=== PATIENT | female | born 1935 | race Caucasian/White ===

== ENCOUNTER 2016-11-03 11:08 | Day surgery (SDC) | payer MEDICARE, BC ==
--- NOTE | ~2016-11-03 | EGD ---
EGD REPORT [facility] [address] [address] NAME: ESTELA RIVERA : [birth year] STATUS : REG [facility]#: [id number] AGE: 81 ADM/REG DATE : 11/03/16 MR#: [id number] REPORT SERV DATE: 11/03/16 DICTATED BY: DATE: REPORT STATUS : Draft TRANSCRIBED BY: [employer] DATE: 11/03/16 [facility] Patient Name: Estela Rivera Date of : 1935 Attending MD: POLINA ARCEO MD Procedure Date No Time: 11/03/2016 Procedure: Colonoscopy Indications: Heme positive stool, Iron deficiency anemia Referring MD: Shaheen GUEVARA Medicines: See the Anesthesia note for documentation of the administered medications Complications: No immediate complications. Procedure: Pre-Anesthesia Assessment: - ASA Grade Assessment: III - A patient with severe systemic disease. After I obtained informed consent, the scope was passed under direct vision. Throughout the procedure, the patient's blood pressure, pulse, and oxygen saturations were monitored continuously. The PCF [id number] was introduced through the anus and advanced to the cecum, identified by appendiceal orifice and ileocecal valve. The colonoscopy was performed without difficulty. The patient tolerated the procedure well. The quality of the bowel preparation was fair. Findings: The perianal and digital rectal examinations were normal. Internal hemorrhoids were found during retroflexion and were small. A sessile polyp was found in the ascending colon. The polyp was small in size. The polyp was removed with a cold biopsy forceps. Resection and retrieval were complete. A sessile polyp was found in the sigmoid colon. The polyp was small in size. The polyp was removed with a cold biopsy forceps. Resection and retrieval were complete. Impression: - Internal hemorrhoids. - One small polyp in the ascending colon. Resected and retrieved. - One small polyp in the sigmoid colon. Resected and retrieved. Recommendation: - Patient has a contact number available for emergencies. The signs and symptoms of potential delayed complications were discussed with the patient. Return to normal activities tomorrow. Written discharge EGD REPORT [address] [place]. [address] NAME: ESTELA RIVERA : [birth year] STATUS : REG [facility] PAT#: [id number] AGE: 81 ADM/REG DATE : 11/03/16 MR#: [id number] REPORT SERV DATE: 11/03/16 DICTATED BY: DATE: REPORT STATUS : Draft TRANSCRIBED BY: [employer] DATE: 11/03/16 instructions were provided to the patient. - Regular diet. - Continue present medications. - Repeat colonoscopy is not recommended for surveillance. - FOR YOUR BIOPSY RESULTS: Please go to [email or web address] and register to receive your results via the portal. Your biopsy results will be posted there in about 7 to 10 days. IF you do not see result in 10 days, call office. - Return to my office in 6 weeks. Procedure Code(s): --- Professional --- 03635, Colonoscopy, flexible, proximal to splenic flexure; with biopsy, single or multiple Diagnosis Code(s): --- Professional --- K64.8, Other hemorrhoids D12.5, Benign neoplasm of sigmoid colon D12.2, Benign neoplasm of ascending colon R19.5, Other fecal abnormalities D50.9, Iron deficiency anemia, unspecified CPT copyright 2013 [employer]. All rights reserved. The codes documented in this report are preliminary and upon solar water heater installer review may be revised to meet current compliance requirements. Polina Arceo MD POLINA ARCEO MD 11/03/2016 1:20 PM This report has been signed electronically. Number of Addenda: 0 Note Initiated On: 11/03/2016 12:45 PM Scope Withdrawal Time 0 hours 6 minutes 6 seconds [id number] [id number]
--- NOTE | ~2016-11-03 | EGD ---
EGD REPORT [facility] [address] [address] NAME: ESTELA RIVERA : 37 STATUS : REG [facility]#: [id number] AGE: 81 ADM/REG DATE : 11/03/16 MR#: [id number] REPORT SERV DATE: 11/03/16 DICTATED BY: POLINA ARCEO DATE: 11/03/16 REPORT STATUS : Draft TRANSCRIBED BY: [facility] DATE: 11/03/16 [facility] Patient Name: Estela Rivera Date of : 1935 Attending MD: POLINA ARCEO MD Procedure Date No Time: 11/03/2016 Procedure: Upper GI endoscopy Indications: Iron deficiency anemia, Heme positive stool Referring MD: KRISTOPHER Castle Medicines: See the Anesthesia note for documentation of the administered medications Complications: No immediate complications. Procedure: Pre-Anesthesia Assessment: - ASA Grade Assessment: III - A patient with severe systemic disease. After obtaining informed consent, the endoscope was passed under direct vision. Throughout the procedure, the patient's blood pressure, pulse, and oxygen saturations were monitored continuously. The GIF H190 [id number] was introduced through the mouth, and advanced to the second part of duodenum. The upper GI endoscopy was accomplished without difficulty. The patient tolerated the procedure well. Findings: The 2nd part of the duodenum was normal. Biopsies were taken with a cold forceps for histology. Two non-bleeding superficial duodenal ulcers with no stigmata of bleeding were found in the duodenal bulb. Mild inflammation was found in the gastric antrum. Biopsies were taken with a cold forceps for histology. The cardia and gastric fundus were normal on retroflexion. A 6 cm hiatus hernia was present. Impression: - Normal 2nd part of the duodenum. Biopsied. - Multiple duodenal ulcers with clean base. - Gastritis. Biopsied. - Hiatus hernia. Recommendation: - Patient has a contact number available for emergencies. The signs and symptoms of potential delayed complications were discussed with the patient. Return to normal activities tomorrow. Written discharge instructions were provided to the patient. - Regular diet. EGD REPORT [address] [place]. [address] NAME: ESTELA RIVERA : [birth year] STATUS : REG [facility] PAT#: [id number] AGE: 81 ADM/REG DATE : 11/03/16 MR#: [id number] REPORT SERV DATE: 11/03/16 DICTATED BY: POLINA ARCEO DATE: 11/03/16 REPORT STATUS : Draft TRANSCRIBED BY: [employer] DATE: 11/03/16 - Continue present medications. - FOR YOUR BIOPSY RESULTS: Please go to [email or web address] and register to receive your results via the portal. Your biopsy results will be posted there in about 7 to 10 days. IF you do not see result in 10 days, call office. - Continue ranitidine prescribed in office Procedure Code(s): --- Professional --- 99616, Esophagogastroduodenoscopy, flexible, transoral; with biopsy, single or multiple Diagnosis Code(s): --- Professional --- K26.9, Duodenal ulcer, unspecified as acute or chronic, without hemorrhage or perforation K29.70, Gastritis, unspecified, without bleeding K44.9, Diaphragmatic hernia without obstruction or gangrene D50.9, Iron deficiency anemia, unspecified R19.5, Other fecal abnormalities CPT copyright 2013 [employer]. All rights reserved. The codes documented in this report are preliminary and upon beading machine operator review may be revised to meet current compliance requirements. Polina Arceo MD POLINA ARCEO MD 11/03/2016 1:05 PM This report has been signed electronically. Number of Addenda: 0 Note Initiated On: 11/03/2016 12:45 PM Scope Withdrawal Time 0 hours 0 minutes 0 seconds [id number] [id number]
[~2016-11-03 11:08] MED LIST: ACET500CAP PO; ADDERALL30 MG PO; ALFALFA; ASAB PO; B121000P IM; BL FLAX SEED1000 MG OR; BL FLAX SEED1000 MG PO; CALTRA600D PO; CENTRUM TAB1 TAB PO; CITRACAL PO; CO Q-10200 MG PO; COCONUT OIL PO; DITRO5 PO; EFFEXOR50 MG PO; FISH-EPA1000 MG PO; FLAXSEED OIL1000 MG PO; FOLIC PO; FOSAMAX35 MG PO; GLUCCHONDR PO; GLUCOSAMINE1 TA2 PO; Garlic PO; HYZAAR 50/12.51 TAB PO; KLOR-CON M2020 MEQ PO; L40 PO; LEVOTHYROXIN100 MCG PO; LEVOTHYROXIN125 MCG PO; LEVOTHYROXIN88 MCG PO; LEXAPRO10 PO; LIPITOR10 PO; LIPITOR40 PO; MOBIC15 MG PO; MOBIC7.5 PO; MVI PO; NEUR100 PO; NEUR300 PO; NORCO1 TA1 PO; NORV5 PO; ORAZINC110 MG PO; OS500+D PO; PRINZIDE1 TAB PO; PROAIR HFA INH; PROAIRRESP INH; PROZAC PO; REQUIP5 PO; RITALIN20 PO; SEROQUEL50 MG PO; SKELAXIN8 PO; SOMATAB PO; T PO; TRAZ50 PO; TUMSROLL PO; VESICARE10 MG PO; VESICARE5 PO; VIST100 PO; VITAMIN B PO; VITAMIN B-121000 MC1 PO; VITAMIN B-121000 MC1 SL; VITAMIN B-122500 MCG PO; VITAMIN B-122500 MCG SL; VITAMIN C; VITAMIN D1000 UNI1 PO; VITAMIN D31000 UNIT PO; VITAMIN E; VITAMIN E PO; VITC500 PO; VITE PO; WELLBUTRIN200 MG PO; WELLSR100 PO; XANAX1 MG PO; ZOCOR10 PO; [UNRECOGNIZED DRUG - CODE] PO; [UNRECOGNIZED DRUG - OTHER]
== END 2016-11-03 23:59 | disposition home or self-care (01) ==
LOC: DMU 11:08
PROVIDERS: Internal Medicine Gastroenterology
PROC: 0DBK8ZX Excision of Ascending Colon, Via Natural or Artificial Opening Endoscopic, Diagnostic (ICD-10-PCS; 2016-11-03)
PROC: 0DBN8ZX Excision of Sigmoid Colon, Via Natural or Artificial Opening Endoscopic, Diagnostic (ICD-10-PCS; 2016-11-03)
PROC: 0DB98ZX Excision of Duodenum, Via Natural or Artificial Opening Endoscopic, Diagnostic (ICD-10-PCS; principal; 2016-11-03 12:30)
PROC: 0DB68ZX Excision of Stomach, Via Natural or Artificial Opening Endoscopic, Diagnostic (ICD-10-PCS; 2016-11-03 12:30)
DX: K63.5 Polyp of colon (principal); K29.50 Unspecified chronic gastritis without bleeding; D50.9 Iron deficiency anemia, unspecified; K44.9 Diaphragmatic hernia without obstruction or gangrene; K64.8 Other hemorrhoids; I10 Essential (primary) hypertension; G47.33 Obstructive sleep apnea (adult) (pediatric); M19.90 Unspecified osteoarthritis, unspecified site; M79.7 Fibromyalgia; K21.9 Gastro-esophageal reflux disease without esophagitis; Z90.710 Acquired absence of both cervix and uterus; F41.9 Anxiety disorder, unspecified; F32.9 Major depressive disorder, single episode, unspecified; E78.00 Pure hypercholesterolemia, unspecified; Z88.8 Allergy status to other drugs, medicaments and biological substances; Z79.899 Other long term (current) drug therapy
CPT/HCPCS: 88305; 88342